=== PATIENT | male | born 1995 | race Caucasian/White ===

== ENCOUNTER 2016-07-05 08:53 | Emergency (ER) | payer SELFPAY ==
[~2016-07-05] VITALS: Ht 175.3 cm; Wt 63.6 kg
[~2016-07-05 08:53] MED LIST: CLEOCIN HCL300 MG PO; DOXYCYCLINE 10100 MG PO; LORTAB 5/500 501 TAB PO; ZITHROMAX Z PA250 MG PO; ZOVIRAX 200MG200 MG PO
[2016-07-05 08:59] VITALS: BP 144/82; PULSE 97; TEMP 98.6
[2016-07-05] MEDS ORDERED: ZITHROMAX Z PA250 MG PO (09:53)
[2016-07-05] MEDS ORDERED: PROAIR HFA0.09 MG/AC IH (09:53)
[2016-07-05 09:55] LABS: INFLUENZA B NEGATIVE
== END 2016-07-05 10:04 | disposition home or self-care (01) ==
LOC: COL.ER 08:53
PROVIDERS: Nurse Practitioner
DX: J40 Bronchitis, not specified as acute or chronic (principal); F17.210 Nicotine dependence, cigarettes, uncomplicated

== ENCOUNTER 2021-06-14 21:16 | Emergency (ER) | payer SELFPAY ==
[~2021-06-14 21:16] MED LIST changes: +PROAIR HFA0.09 MG/AC IH
[2021-06-14 21:57] VITALS: TEMP 98.3
[2021-06-14 22:56] VITALS: BP 126/75; PULSE 65
== END 2021-06-14 22:56 | disposition home or self-care (01) ==
LOC: COL.ER 21:16
DX: S61.411A Laceration without foreign body of right hand, initial encounter (principal); W26.8XXA Contact with other sharp object(s), not elsewhere classified, initial encounter; Y93.G1 Activity, food preparation and clean up

== ENCOUNTER 2021-09-07 17:16 | Emergency (ER) | payer SELFPAY ==
[~2021-09-07] VITALS: Ht 172.7 cm; Wt 63.6 kg
[2021-09-07 17:51] VITALS: BP 133/83; PULSE 74; TEMP 98.2
== END 2021-09-07 20:11 | disposition home or self-care (01) ==
LOC: COL.ER 17:16
DX: S09.90XA Unspecified injury of head, initial encounter (principal); Z28.310 Unvaccinated for COVID-19; W20.8XXA Other cause of strike by thrown, projected or falling object, initial encounter; Y93.F2 Activity, caregiving, lifting; Y92.59 Other trade areas as the place of occurrence of the external cause; Y99.0 Civilian activity done for income or pay